=== PATIENT | male | born 1990 | race Native Hawaiian/Other Pacific Islander ===

== ENCOUNTER 2020-12-18 22:13 | Emergency (ER) | payer BC ==
[~2020-12-18] VITALS: Ht 180.3 cm; Wt 90.7 kg
[2020-12-18 23:00] LABS: PLATELET COUNT 267 K/uL (142-355)
[2020-12-18 23:12] LABS: POTASSIUM 3.9 mmol/L (3.6-5.2)
[2020-12-19 01:56] VITALS: BP 118/81; TEMP 98.3
== END 2020-12-19 01:57 | disposition home or self-care (01) ==
LOC: ED 22:13
PROVIDERS: Hospitalist
DX: K29.70 Gastritis, unspecified, without bleeding (principal)
CPT/HCPCS: 36415; 80053; 81000; 82150; 83690; 85027; 96360; 96372; 96375; 99283; 99284; J2405